=== PATIENT | female | born 1960 | race Caucasian/White ===

== ENCOUNTER → 2023-10-14 07:45 | Outpatient (REF) | payer BC, SELFPAY | LOC: HWRAD 07:45 | PROVIDERS: ATTENDING PHYSICIAN Obstetrics & Gynecology; FAMILY PHYSICIAN Physician Assistant Medical | DX: Z12.31 Encounter for screening mammogram for malignant neoplasm of breast (principal); Z80.41 Family history of malignant neoplasm of ovary | CPT/HCPCS: 76830; 76856; 77063; 77067 ==

== ENCOUNTER → 2024-10-30 08:00 | Outpatient (REF) | payer BC, SELFPAY | LOC: HWWDC 08:00 | PROVIDERS: ATTENDING PHYSICIAN Obstetrics & Gynecology; FAMILY PHYSICIAN Family Medicine | DX: Z12.31 Encounter for screening mammogram for malignant neoplasm of breast (principal); Z80.41 Family history of malignant neoplasm of ovary; D25.1 Intramural leiomyoma of uterus | CPT/HCPCS: 76830; 76856; 77063; 77067 ==